=== PATIENT | male | born 1955 | race Two or more races ===

== ENCOUNTER → 2025-03-05 | Outpatient (CLI) | payer MEDICARE, SELFPAY ==
--- NOTE | 2025-03-05 15:15 | XR_ITS ---
Examination: Testicular sonography complete TECHNIQUE: Grayscale sonographic images testes, assessment arterial inflow venous outflow Doppler spectral analysis carful analysis Date and time: March 05, 2025 1533 hours INDICATIONS: Bilateral testicular swelling 6 months FINDINGS: Right testis 4.3 cm epididymis 11 mm Arterial flow testicle. 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 Arterial flow testicle. No solid testicular mass Severe left hydrocele with internal debris IMPRESSION: No testicular torsion or testicular mass Prominent right varicocele Severe left hydrocele with internal debris
== END | disposition home or self-care (01) ==
LOC: CDIM 15:13
DX: I86.1 Scrotal varices (principal); N43.2 Other hydrocele
CPT/HCPCS: 76870

== ENCOUNTER → 2025-08-04 | Outpatient (BNVA) | payer MEDICARE, SELFPAY | END | disposition home or self-care (01) | PROVIDERS: Visit Provider Urology | DX: N43.3 Hydrocele, unspecified (principal); I86.1 Scrotal varices; I10 Essential (primary) hypertension; I25.10 Atherosclerotic heart disease of native coronary artery without angina pectoris | CPT/HCPCS: 81003; 99212; G0463 ==